=== PATIENT | male | born 1985 | race Caucasian/White ===

== ENCOUNTER 2019-06-16 13:07 | Observation (INO) | payer SELFPAY ==
[2019-06-16] MEDS ORDERED: Sodium Chloride 0.9% 10 ML Syringe FLUSH PRN (13:23)
[2019-06-16 14:19] LABS: CHLORIDE,CL 98 mmol/L (98-107); SODIUM,NA 136 mmol/L (136-145)
[2019-06-16 14:21] LABS: ANION GAP 12.7 mmol/L (10-20)
--- NOTE | 2019-06-16 15:03 | EDM.PDOC ---
ED HPI GENERAL MEDICAL PROBLEM - General Chief Complaint: Skin Complaint Time Seen by Provider: 06/16/19 13:13 Source of Information: Reports: Patient History Limitations: Reports: No Limitations - History of Present Illness INITIAL COMMENTS - FREE TEXT/NARRATIVE: Pt. presents to ER with complaints of cellulitis to R posterior knee. Pt. states that he developed cellulitis to R posterior knee earlier this week. He was seen in the clinic earlier this week and started on bactrim DS. There was initially an abscess that was cultured and grew resistant staph susceptible to bactrim DS and vanco. Pt. is concerned as the lesion is more widespread, open, with increased discharge. There is no abscess any longer. Pt. has not been checking his temp, but he "feels like he is getting sick". Denies any numbness/tingling in the distal portion of the extremity. Denies any chest pain or shortness of breath. No lightheadedness. No nausea, vomiting, or diarrhea. Onset: Today - Related Data Allergies Allergy/AdvReac Type Severity Reaction Status Date / Time No Known Allergies Allergy Verified 06/16/19 13:28 Home Meds: Home Meds Methadone 70 mg PO Q7D 06/16/19 [History] Past Medical History - Past Health History Medical/Surgical History: Denies Medical/Surgical History Psychiatric History: Reports: Addiction - Infectious Disease History Infectious Disease History: Reports: Other (See Below) Other Infectious Disease History: staph infection to leg Social & Family History - Tobacco Use Smoking Status *Q: Unknown Ever Smoked ED ROS GENERAL - Review of Systems Review Of Systems: See Below Constitutional: Reports: No Symptoms HEENT: Reports: No Symptoms Respiratory: Reports: No Symptoms Cardiovascular: Reports: No Symptoms Endocrine: Reports: No Symptoms GI/Abdominal: Reports: No Symptoms : Reports: No Symptoms Musculoskeletal: Reports: Leg Pain, Other (see above) Skin: Reports: Rash, Erythema, Other (see above) Neurological: Reports: No Symptoms Psychiatric: Reports: No Symptoms Hematologic/Lymphatic: Reports: No Symptoms Immunologic: Reports: No Symptoms ED EXAM, SKIN/RASH Exam: See Below Exam Limited By: No Limitations General Appearance: Alert, WD/WN, No Apparent Distress Respiratory/Chest: No Respiratory Distress, Lungs Clear, Normal Breath Sounds, No Accessory Muscle Use, Chest Non-Tender Cardiovascular: Normal Peripheral Pulses, Regular Rate, Rhythm, No Edema, No JVD , No Murmur, No Rub GI/Abdominal: Normal Bowel Sounds, Soft, Non-Tender, No Organomegaly, No Distention, No Mass (Male) Exam: Deferred Rectal (Males) Exam: Deferred Back Exam: Normal Inspection, Full Range of Motion Extremities: Other (large, erythematous, crusting lesion noted to R posterior knee area. There is moderate discharge from the area.) Neurological: Alert, Oriented, CN II-XII Intact, Normal Cognition, No Motor/ Sensory Deficits Course - Vital Signs Last Recorded V/S: Last Vital Signs Temp 37.2 C 06/16/19 13:13 Pulse 109 H 06/16/19 13:13 Resp 20 06/16/19 13:13 BP 146/93 H 06/16/19 13:13 Pulse Ox 98 06/16/19 13:13 - Orders/Labs/Meds Orders: Active Orders 24 hr Category Date Time Status Patient Status [ADT] Routine ADT 06/16/19 14:41 Ordered CULTURE BLOOD [BC] Stat Lab 06/16/19 13:40 Received CULTURE BLOOD [BC] Stat Lab 06/16/19 13:46 Results Sodium Chloride 0.9% [Saline Flush] Med 06/16/19 13:23 Active 10 ml FLUSH ASDIRECTED PRN Vancomycin 2 gm Med 06/16/19 13:36 Active Sodium Chloride 0.9% [Normal Saline] 250 ml IV STAT Blood Culture x2 Reflex Set [OM.PC] Stat Oth 06/16/19 13:23 Ordered Peripheral IV Insertion Adult [OM.PC] Routine Oth 06/16/19 13:23 Ordered Medication Orders Vancomycin HCl 2 gm/ Sodium (Chloride) 250 mls @ 125 mls/hr IV STAT ONE Stop: 06/16/19 15:35 Last Admin: 06/16/19 13:55 Dose: 125 mls/hr Sodium Chloride (Saline Flush) 10 ml FLUSH ASDIRECTED PRN PRN Reason: Keep Vein Open Labs: Laboratory Tests 06/16/19 06/16/19 06/16/19 Range/Units 13:40 13:40 13:40 WBC 6.5 (4.0-10.0) x10^3/uL RBC 4.51 (4.5-6.0) x10^6/uL Hgb 13.8 L (14.0-18.0) g/dL Hct 40.6 (40.0-52.0) % MCV 90.0 (78.0-93.0) fL MCH 30.6 (26.0-32.0) pg MCHC 34.0 (32.0-36.0) g/dL RDW Coeff of [place] 12.9 (10.0-15.0) % Plt Count 127 L D (130-400) x10^3/uL Neut % (Auto) 85.1 H (50.0-80.0) % Lymph % (Auto) 6.9 L (25.0-50.0) % [place] % (Auto) 6.9 (2.0-11.0) % Eos % (Auto) 0.6 (0.0-4.0) % Baso % (Auto) 0.5 (0.2-1.2) % PT 10.9 (10.0-12.8) SEC INR 1.0 L (2.0-3.5) Sodium 136 (136-145) mmol/L Potassium 3.7 (3.5-5.1) mmol/L Chloride 98 (98-107) mmol/L Carbon Dioxide 29 (21-32) mmol/L Anion Gap 12.7 (10-20) mmol/L BUN 11 (7-18) mg/dL Creatinine 1.2 (0.70-1.30) mg/dL Est Cr Clr Drug Dosing TNP Estimated GFR (MDRD) > 60 Glucose 113 H (74-106) mg/dL Lactic Acid (0.4-2.0) mmol/L Calcium 8.6 (8.5-10.1) mg/dL Corrected Calcium 8.60 (8.5-10.1) mg/dL Total Bilirubin 0.7 (0.2-1.0) mg/dL AST 27 (15-37) U/L ALT 52 (16-63) U/L Alkaline Phosphatase 94 (46-116) U/L C-Reactive Protein 14.1 H (<=0.9) mg/dL Total Protein 7.6 (6.4-8.2) g/dL Albumin 4.0 (3.4-5.0) g/dL Globulin 3.6 Albumin/Globulin Ratio 1.11 /05/27 Range/Units 13:40 WBC (4.0-10.0) x10^3/uL RBC (4.5-6.0) x10^6/uL Hgb (14.0-18.0) g/dL Hct (40.0-52.0) % MCV (78.0-93.0) fL MCH (26.0-32.0) pg MCHC (32.0-36.0) g/dL RDW Coeff of [place] (10.0-15.0) % Plt Count (130-400) x10^3/uL Neut % (Auto) (50.0-80.0) % Lymph % (Auto) (25.0-50.0) % [place] % (Auto) (2.0-11.0) % Eos % (Auto) (0.0-4.0) % Baso % (Auto) (0.2-1.2) % PT (10.0-12.8) SEC INR (2.0-3.5) Sodium (136-145) mmol/L Potassium (3.5-5.1) mmol/L Chloride (98-107) mmol/L Carbon Dioxide (21-32) mmol/L Anion Gap (10-20) mmol/L BUN (7-18) mg/dL Creatinine (0.70-1.30) mg/dL Est Cr Clr Drug Dosing Estimated GFR (MDRD) Glucose (74-106) mg/dL Lactic Acid 1.0 (0.4-2.0) mmol/L Calcium (8.5-10.1) mg/dL Corrected Calcium (8.5-10.1) mg/dL Total Bilirubin (0.2-1.0) mg/dL AST (15-37) U/L ALT (16-63) U/L Alkaline Phosphatase (46-116) U/L C-Reactive Protein (<=0.9) mg/dL Total Protein (6.4-8.2) g/dL Albumin (3.4-5.0) g/dL Globulin Albumin/Globulin Ratio Meds: Medications Generic Name Dose Route Start Last Admin Trade Name Freq PRN Reason Stop Dose Admin Vancomycin HCl 2 gm/ Sodium 250 mls @ 125 mls/hr 06/16/19 13:36 06/16/19 13: 55 Chloride IV 06/16/19 15:35 125 mls/hr STAT ONE Administration Sodium Chloride 10 ml 06/16/19 13:23 Saline Flush FLUSH ASDIRECTED PRN Keep Vein Open Departure - Departure Time of Disposition: 15:07 Disposition: Refer to Observation Condition: Good Clinical Impression: Cellulitis - Discharge Information Referrals: Kenneth Moore PA-C [Primary Care Provider] - - Problem List Review Problem List Initiated/Reviewed/Updated: Yes - My Orders Last 24 Hours: My Active Orders 06/16/19 13:23 Sodium Chloride 0.9% [Saline Flush] 10 ml FLUSH ASDIRECTED PRN Blood Culture x2 Reflex Set [OM.PC] Stat Peripheral IV Insertion Adult [OM.PC] Routine 06/16/19 13:36 Vancomycin 2 gm Sodium Chloride 0.9% [Normal Saline] 250 ml IV STAT 06/16/19 13:40 CULTURE BLOOD [BC] Stat 06/16/19 13:46 CULTURE BLOOD [BC] Stat 06/16/19 14:41 Patient Status [ADT] Routine - Assessment/Plan Last 24 Hours: My Active Orders 06/16/19 13:23 Sodium Chloride 0.9% [Saline Flush] 10 ml FLUSH ASDIRECTED PRN Blood Culture x2 Reflex Set [OM.PC] Stat Peripheral IV Insertion Adult [OM.PC] Routine 06/16/19 13:36 Vancomycin 2 gm Sodium Chloride 0.9% [Normal Saline] 250 ml IV STAT 06/16/19 13:40 CULTURE BLOOD [BC] Stat 06/16/19 13:46 CULTURE BLOOD [BC] Stat 06/16/19 14:41 Patient Status [ADT] Routine Plan: Pt. was given vancomycin 2 gm in ER. Pt. was admitted observation. Will continue IV vancomycin every 12 hours. Will have pharmacy dose vancomycin. Anticipate discharge tomorrow AM. Pt. states that he is on methadone and is due for his dose before tomorrow at noon. He is a code 1.
[2019-06-16] MEDS ORDERED: Acetaminophen 500 MG Tab PO PRN (17:26)
[2019-06-16] MEDS ORDERED: Ibuprofen 200 MG Tab PO PRN (17:33)
[2019-06-16] MEDS ORDERED: Acetaminophen 500 MG Tab PO STA (17:33)
[2019-06-17 05:29] VITALS: BP 127/78; PULSE 75
--- NOTE | 2019-06-18 10:42 | PCM.DCSUM1 ---
Discharge Summary - Hospital Course Free Text/Narrative:: 33-year-old white male that was placed in observation overnight secondary to cellulitis of the right popliteal area. Patient was admitted overnight and given 4 doses of IV vancomycin and continue to take Septra DS one by mouth every 12 hours from the hospital. Patient states that he ran fever overnight which he was given Tylenol Motrin for which worked well. Patient has no complaints is more and wishes to be discharged that when he can keep his appointment in [place]. States he feels better overall and the redness has resolved a lot per the patient. HPI Initial Comments: see hpi and discharge note Brief History: Patient was admitted overnight for observation had no complications through the night states feels better this morning will be discharged to attend his appointment in [place] Diagnosis: Stroke: No Modified [place] Scale: No Signif.Disability Despite Sympt.Able to Carry Out Usual Act./Duties Modified Joan Scale Score: 1 - Discharge Data Discharge Date: 06/17/19 Discharge Disposition: Home, Self-Care 01 Condition: Good - Referral to Home Health Primary Care Physician: Kenneth Moore PA-C - Discharge Diagnosis/Problem(s) (1) Cellulitis SNOMED Code(s): 234046318 ICD Code: L03.90 - CELLULITIS, UNSPECIFIED Status: Acute Priority: High Onset Date: 03/01/15 Problem Details: Cellulitis left lower leg and foot after rolling ankle 3 days ago. Qualifiers: Site of cellulitis: extremity Laterality: right - Patient Instructions Diet: Usual Diet as Tolerated Activity: Full Weight Bearing - Discharge Plan *PRESCRIPTION DRUG MONITORING PROGRAM REVIEWED*: No *COPY OF PRESCRIPTION DRUG MONITORING REPORT IN PATIENT RICCO: No Home Medications: Home Meds Methadone 70 mg PO Q7D 06/16/19 [History] Sulfamethoxazole/Trimethoprim [Septra DS] 2 tab PO Q12HR 06/17/19 [History] Forms: ED Department Discharge Referrals: Kenneth Moore PA-C [Primary Care Provider] - - Discharge Summary/Plan Comment DC Time >30 min.: Yes - General Info Date of Service: 06/17/19 Functional Status: Reports: Pain Controlled, Tolerating Diet, Ambulating - Review of Systems General: Reports: No Symptoms HEENT: Reports: No Symptoms Pulmonary: Reports: No Symptoms Cardiovascular: Reports: No Symptoms Gastrointestinal: Reports: No Symptoms Genitourinary: Reports: No Symptoms Musculoskeletal: Reports: Leg Pain (Patient still has mild amount of pain 2 out of 10 to the posterior aspects of the leg states that the drainage has gotten better and the redness is much better he has full range of motion complaints) Skin: Denies: No Symptoms Neurological: Reports: No Symptoms Psychiatric: Reports: No Symptoms - Patient Data Vitals - Most Recent: Last Vital Signs Temp 37.0 C 06/17/19 05:28 Pulse 75 06/17/19 05:28 Resp 20 06/17/19 05:28 BP 127/78 06/17/19 05:28 Pulse Ox 97 06/17/19 05:28 Vital signs were noted and normal patient was actively texturing on his phone this morning no acute distress Weight - Most Recent: 119.295 kg CONSUELO Results - Last 24 hrs: Microbiology 06/16/19 13:46 Aerobic Blood Culture - Preliminary Blood - Venous - Lab Draw NO GROWTH AFTER 1 DAY Anaerobic Blood Culture - Final 06/16/19 13:40 Aerobic Blood Culture - Preliminary Blood - Venous NO GROWTH AFTER 1 DAY Anaerobic Blood Culture - Preliminary NO GROWTH AFTER 1 DAY Med Orders - Current: Current Medications Discontinued Medications Acetaminophen (Tylenol Extra Strength) 500 mg PO Q4H PRN PRN Reason: Abdominal Pain Last Admin: 06/17/19 02:23 Dose: 500 mg Acetaminophen (Tylenol Extra Strength) 1,000 mg PO STAT STA Stop: 06/16/19 17:34 Last Admin: 06/16/19 17:41 Dose: 1,000 mg Vancomycin HCl 2 gm/ Sodium (Chloride) 250 mls @ 125 mls/hr IV STAT ONE Stop: 06/16/19 15:35 Last Admin: 06/16/19 13:55 Dose: 125 mls/hr Vancomycin HCl 2 gm/ Sodium (Chloride) 250 mls @ 125 mls/hr IV STAT ONE Stop: 06/16/19 22:59 Vancomycin HCl 1.5 gm/ Sodium (Chloride) 250 mls @ 165 mls/hr IV Q8H JOI Last Admin: 06/17/19 05:22 Dose: 165 mls/hr Ibuprofen (Motrin) 800 mg PO Q6H PRN PRN Reason: Pain/Fever Last Admin: 06/16/19 17:42 Dose: 800 mg Sodium Chloride (Saline Flush) 10 ml FLUSH ASDIRECTED PRN PRN Reason: Keep Vein Open Last Admin: 06/16/19 22:30 Dose: 10 ml - Exam General: Reports: Alert, Oriented HEENT: Reports: Pupils Equal, Pupils Reactive Lungs: Reports: Clear to Auscultation, Normal Respiratory Effort Cardiovascular: Reports: Regular Rate, Regular Rhythm GI/Abdominal Exam: Normal Bowel Sounds, Soft, Non-Tender Extremities: Other (Patient is neurovascularly intact bilateral lower extremity full range of motion negative edema noted) Skin: Reports: Warm, Intact, Other (Patient is noted to have mild serous drainage to the right popliteal fossa area which has been ongoing for the last couple days patient states is better this morning patient appears to have a healing superficial scab over the area with good granulation no surrounding streaking or signs and symptoms of increased secondary infection) Wound/Incisions: Reports: Healing Well Neurological: Reports: No New Focal Deficit Psy/Mental Status: Reports: Alert, Normal Affect Physical Findings Comments:: Patient discharge diagnosis cellulitis right knee popliteal fossa area patient with the culture came back positive for MRSA patient will continue Septra DS by mouth but increased to 2 tabs by mouth twice a day patient has deformity to his primary care provider today at 4:30 patient states that he will see primary care provider today and continue taking all medications he has no concerns or questions at this time. Return to the emergency room for anything changes or gets worse *Q Meaningful Use (DIS) - VTE *Q VTE Criteria *Q: Patient with less than 24-hour stay no VTE protocol as needed
== END 2019-06-17 09:42 | disposition home or self-care (01) ==
LOC: VM.ED 13:07 → VM.MS 14:41
PROVIDERS: ADMIT Physician Assistant; ATTEND Physician Assistant
DX: L03.115 Cellulitis of right lower limb (principal); B95.62 Methicillin resistant Staphylococcus aureus infection as the cause of diseases classified elsewhere
CPT/HCPCS: 36415; 80053; 83605; 85025; 85610; 86140; 87040; 96365; 99283; A9270; J3370; J7050

== ENCOUNTER 2019-10-09 11:33 | Emergency (ER) | payer OTHER ==
[2019-10-09 12:04] VITALS: BP 138/70; PULSE 84
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
== END 2019-10-09 12:09 | disposition home or self-care (01) ==
LOC: VM.ED 11:33
DX: S06.0X0A Concussion without loss of consciousness, initial encounter (principal); V43.52XA Car driver injured in collision with other type car in traffic accident, initial encounter; Y92.481 Parking lot as the place of occurrence of the external cause
CPT/HCPCS: 99283

== ENCOUNTER 2021-01-25 06:10 | Emergency (ER) | payer OTHER ==
[2021-01-25] MEDS ORDERED: Lidocaine 2% 5 ML SDV INJECT ONE (06:25)
--- NOTE | 2021-01-25 06:35 | EDM.PDOC ---
ED HPI GENERAL MEDICAL PROBLEM - General Chief Complaint: Upper Extremity Injury/Pain Stated Complaint: Avulsion tip of left 4th digit Time Seen by Provider: 01/25/21 06:25 Source of Information: Reports: Patient History Limitations: Reports: No Limitations - History of Present Illness INITIAL COMMENTS - FREE TEXT/NARRATIVE: tip of left ring finger nearly completely avulsed from work injury. Caught in machinery. Onset: Today, Sudden - Related Data Allergies Allergy/AdvReac Type Severity Reaction Status Date / Time No Known Allergies Allergy Verified 01/25/21 06:39 Home Meds: Home Meds . [No Known Home Meds] 10/09/19 [History] Past Medical History - Past Health History Medical/Surgical History: Denies Medical/Surgical History Psychiatric History: Reports: Addiction - Infectious Disease History Infectious Disease History: Reports: Other (See Below) Other Infectious Disease History: staph infection to leg Social & Family History - Caffeine Use Caffeine Use: Reports: Coffee, Soda Other Caffeine Use: very rearly. Review of Systems - Review of Systems Review Of Systems: See Below Constitutional: Reports: No Symptoms Eyes: Reports: No Symptoms Ears: Reports: No Symptoms Nose: Reports: No Symptoms Mouth/Throat: Reports: No Symptoms Respiratory: Reports: No Symptoms Cardiovascular: Reports: No Symptoms GI/Abdominal: Reports: No Symptoms Genitourinary: Reports: No Symptoms Musculoskeletal: Reports: Other (distal 4th digit avulsion) Skin: Reports: No Symptoms Neurological: Reports: No Symptoms Psychiatric: Reports: No Symptoms ED EXAM, GENERAL - Physical Exam Exam: See Below Course - Orders/Labs/Meds Meds: Medications Discontinued Medications Generic Name Dose Route Start Last Admin Trade Name [place] PRN Reason Stop Dose Admin Lidocaine 5 ml 01/25/21 06:25 Lidocaine 2% 5 Ml Sdv INJECT 01/25/21 06:26 ONETIME ONE Departure - Departure Time of Disposition: 06:59 Disposition: DC/Tfer to Other 70 Condition: Good Clinical Impression: Avulsion of fingernail of left hand - Discharge Information *PRESCRIPTION DRUG MONITORING PROGRAM REVIEWED*: Not Applicable *COPY OF PRESCRIPTION DRUG MONITORING REPORT IN PATIENT RICCO: Not Applicable Forms: ED Department Discharge, Interfacility Transfer [facility] ED Communication - ED Communication Date/Time Date: 01/25/21 Time Called: 06:35 - Discussed Case With (1) Discussed Case With (1): Admitting Provider - Problem List & Annotations (1) Avulsion of fingernail of left hand SNOMED Code(s): 413911925 Code(s): S61.309A - UNSP OPEN WOUND OF UNSP FINGER W DAMAGE TO NAIL, INIT ENCNTR Status: Acute
[2021-01-25 06:40] VITALS: BP 149/83; PULSE 89
== END 2021-01-25 07:10 | disposition other institution (70) ==
LOC: VM.ED 06:10
DX: S61.305A Unspecified open wound of left ring finger with damage to nail, initial encounter (principal); W31.9XXA Contact with unspecified machinery, initial encounter
CPT/HCPCS: 64450; 99283; 99284-25